=== PATIENT | male | born 1945 | race Two or more races ===

== ENCOUNTER 2023-01-23 14:14 | Outpatient (CLI) | payer OTHER | END 2023-01-23 14:18 | disposition home or self-care (01) | LOC: RAD 14:14 | PROVIDERS: ATTEND Orthopaedic Surgery | DX: M25.561 Pain in right knee (principal) ==

== ENCOUNTER 2023-04-15 09:40 | Outpatient (CLI) | payer OTHER | END 2023-04-15 09:41 | disposition home or self-care (01) | LOC: LAB 09:40 | PROVIDERS: ATTEND Orthopaedic Surgery | DX: M85.9 Disorder of bone density and structure, unspecified (principal); E83.42 Hypomagnesemia; E56.1 Deficiency of vitamin K ==